=== PATIENT | female | born 1990 | race African-American/Black ===

== ENCOUNTER 2018-03-27 18:26 | Emergency (ER) | payer OTHER ==
[2018-03-27 19:18] VITALS: BP 120/75; PULSE 105; TEMP 98.7; BMI 31.8
--- NOTE | 2018-03-27 19:48 | PDOC ---
History of Present Illness - General Chief Complaint: Cold Symptoms Stated Complaint: COLD SYMPTOMS Time Seen by Provider: 03/27/18 19:42 - History of Present Illness Initial Comments: 27-year-old female without comorbidities presents for evaluation of cough 5 days. No other associated symptoms. 03/27/18 19:46 Past History - Past Medical History Allergies/Adverse Reactions: Allergies Allergy/AdvReac Type Severity Reaction Status Date / Time No Known Allergies Allergy Verified 03/27/18 19:15 Home Medications: Ambulatory Orders NK [No Known Home Medication] 03/27/18 Asthma: No Cancer: No Cardiac Disorders: No Diabetes: No HTN: No Seizures: No Thyroid Disease: No - Reproductive History (#): 1 Para: 0 - Suicide/Smoking/Psychosocial Hx Smoking Status: No Smoking History: Never smoked Have you smoked in the past 12 months: No Number of Cigarettes Smoked Daily: 0 Hx Alcohol Use: No Drug/Substance Use Hx: No Hx Substance Use Treatment: No Review of Systems - Review of Systems Respiratory: Yes: Cough All Other Systems: Reviewed and Negative *Physical Exam - Vital Signs Last Vital Signs Temp Pulse Resp BP Pulse Ox 98.7 F 105 H 18 120/75 9 L 03/27/18 19:15 03/27/18 19:15 03/27/18 19:15 03/27/18 19:15 03/27/18 19:15 - Physical Exam Comments: HEAD: NC/AT EYES: Conjuntiva clear Ears: Canals and TM's normal NOSE: No d/c THROAT: Moist mucous membrances, oral pharanx clear, uvula midline NECK: Supple without adenopathy CARDIAC: S1 S2 LUNGS: CTA Full and Equal breath sounds ABDOMEN: Soft NT ND MS: Full ROM in all joints without edema NEUROLOGIC: No gross sensory or motor deficits, NVID SKIN: Normal color and temperature no lesions or rashes 03/27/18 19:47 Medical Decision Making - Medical Decision Making This is a benign examination and healthy 27-year-old female without comorbidities. I will for her to PCP for further evaluation and treatment options. I do not see the need for antibiotics at this time. 03/27/18 19:47 *DC/Admit/Observation/Transfer Diagnosis at time of Disposition: Viral syndrome - Discharge Dispostion Disposition: HOME Condition at time of disposition: Stable Decision to Admit order: No - Referrals Referrals: Aminata Trejo MD [Primary Care Provider] - - Patient Instructions Printed Discharge Instructions: DI for Viral Upper Respiratory Infection -- Adult Additional Instructions: Return to the emergency room should symptoms worsen or go unresolved. Please follow-up with your primary care physician one to 2 days for further evaluation and treatment options. - Post Discharge Activity
== END 2018-03-27 19:51 | disposition home or self-care (01) ==
LOC: JERFT 18:26
DX: B34.9 Viral infection, unspecified (principal)
CPT/HCPCS: 99281-25

== ENCOUNTER 2018-08-23 09:13 | Emergency (ER) | payer OTHER ==
[2018-08-23 09:18] VITALS: BP 114/67; PULSE 90; TEMP 98.7; BMI 30.9
--- NOTE | 2018-08-23 10:12 | PDOC ---
History of Present Illness - General Chief Complaint: Cold Symptoms Stated Complaint: COLD SYMPTOMS Time Seen by Provider: 08/23/18 09:28 History Source: Patient Exam Limitations: Clinical Condition - History of Present Illness Initial Comments: 08/23/18 10:07 Patient with no significant past medical history of present with complaint of three-day history of persistent cough, nasal congestion, chest tightness, sinus pain and midsternal chest pain. Patient reported she had multiple episodes of chest pain in the past and all workup comes back negative. Patient denies dizziness, shortness of breath, headache, nausea, vomiting, swelling, fever or chills. Patient denies any other symptoms Timing/Duration: other (3 days) Past History - Past Medical History Allergies/Adverse Reactions: Allergies Allergy/AdvReac Type Severity Reaction Status Date / Time No Known Allergies Allergy Verified 08/23/18 09:18 Home Medications: Ambulatory Orders Benzonatate [Tessalon Pearls -] 100 mg PO TID PRN #21 capsule 08/23/18 Ipratropium [facility] 2 spray NS BID PRN #1 spray 08/23/18 Loratadine 10 mg PO DAILY #10 capsule 08/23/18 Methylprednisolone [Medrol Dose Geoff] 4 mg PO ASDIR #21 tablet 08/23/18 Asthma: No Cancer: No Cardiac Disorders: No COPD: No Diabetes: No HTN: No Seizures: No Thyroid Disease: No - Reproductive History (#): 1 Para: 0 - Suicide/Smoking/Psychosocial Hx Smoking Status: No Smoking History: Never smoked Have you smoked in the past 12 months: No Number of Cigarettes Smoked Daily: 0 Information on smoking cessation initiated: No Hx Alcohol Use: No Drug/Substance Use Hx: No Hx Substance Use Treatment: No Review of Systems - Review of Systems Able to Perform ROS?: Yes Is the patient limited Peruvian proficient: No Constitutional: No: Chills, Fever, Malaise, Weakness HEENTM: Yes: Symptoms Reported, See HPI, Nose Congestion. No: Eye Pain, Blurred Vision, Tearing, Recent change in vision, Double Vision, Cataracts, Ear Pain, Ocular Prothesis, Ear Discharge, Nose Pain, Tinnitus, Nose Bleeding, Hearing Loss, Throat Pain, Throat Swelling, Mouth Pain, Dental Problems, Difficulty Swallowing, Mouth Swelling, Other Respiratory: Yes: Symptoms reported, See HPI, Cough, Productive cough (yellow sputum). No: Orthopnea, Shortness of Breath, SOB with Exertion, SOB at Rest, Stridor, Wheezing, Hemoptysis, Other Cardiac (ROS): Yes: Symptoms Reported, See HPI, Chest Pain (mid-sternum), Chest Tightness. No: Edema, Irregular Heart Rate, Lightheadedness, Palpitations, Syncope, Other ABD/GI: No: Constipated, Diarrhea, Nausea, Vomiting, Abdominal cramping Neurological: No: Headache, Numbness, Paresthesia, Tingling, Weakness, Ataxia, Dizziness All Other Systems: Reviewed and Negative *Physical Exam - Vital Signs Last Vital Signs Temp Pulse Resp BP Pulse Ox 98.7 F 90 18 114/67 99 08/23/18 09:16 08/23/18 09:16 08/23/18 09:16 08/23/18 09:16 08/23/18 09:16 - Physical Exam Comments: 08/23/18 10:09 GENERAL: Well developed, well nourished. Awake and alert. No acute distress. HEENT: Normocephalic, atraumatic. PERRLA, EOMI. No conjunctival pallor. Sclera are non-icteric. Moist mucous membranes. Oropharynx is clear. NECK: Supple. Full ROM. CARDIOVASCULAR: Mild reproducible midsternal chest tenderness.Regular rate and rhythm. No murmurs, rubs, or gallops. Distal pulses are 2+ and symmetric. PULMONARY: No evidence of respiratory distress. Lungs clear to auscultation bilaterally. No wheezing, rales or rhonchi. ABDOMINAL: Soft. Non-tender. Non-distended. No rebound or guarding. No organomegaly. Normoactive bowel sounds. MUSCULOSKELETAL Normal range of motion at all joints. EXTREMITIES: No cyanosis. No clubbing. No edema. No calf tenderness. SKIN: Warm and dry. Normal capillary refill. No rashes. No jaundice. NEUROLOGICAL: Alert, awake, appropriate. Gait is normal without ataxia. PSYCHIATRIC: Cooperative. Good eye contact. Appropriate mood General Appearance: Yes: Nourished, Appropriately Dressed. No: Apparent Distress Moderate Sedation - Procedure Monitoring Vital Signs: Procedure Monitoring Vital Signs Temperature 98.7 F 08/23/18 09:16 Pulse Rate 90 08/23/18 09:16 Respiratory Rate 18 08/23/18 09:16 Blood Pressure 114/67 08/23/18 09:16 O2 Sat by Pulse Oximetry (%) 99 08/23/18 09:16 ED Treatment Course - RADIOLOGY Radiology Studies Ordered: Category Date Time Status CHEST PA & LAT [RAD] Stat Radiology 08/23/18 10:05 Ordered Medical Decision Making - Medical Decision Making 08/23/18 10:10 Patient with no significant past medical history of present with complaint of three-day history of persistent cough, nasal congestion, chest tightness, sinus pain and midsternal chest pain. Patient reported she had multiple episodes of chest pain in the past and all workup comes back negative. Exam unremarkable except mild reproducible midsternal chest tenderness. Normal cardiac exam. Lungs clear to auscultation bilateral. Patient in no acute distress. Symptoms likely URI with costochondritis from cough. EKG and chest x-ray ordered to rule out any cardiopulmonary pathology. 08/23/18 10:52 EKG shows normal sinus rhythm. Chest x-ray shows no acute chest pathology. Patient is stable for discharge for treatment for viral URI with costochondritis with PCP follow-up. *DC/Admit/Observation/Transfer Diagnosis at time of Disposition: Bronchospasm, Costochondritis, acute URI (upper respiratory infection) Qualifiers: URI type: unspecified URI Qualified Code(s): J06.9 - Acute upper respiratory infection, unspecified - Discharge Dispostion Disposition: HOME Condition at time of disposition: Stable Decision to Admit order: No - Prescriptions Prescriptions: Benzonatate [Tessalon Pearls -] 100 mg PO TID PRN #21 capsule PRN Reason: Cough Ipratropium [facility] 2 spray NS BID PRN #1 spray PRN Reason: nasal congestion Loratadine 10 mg PO DAILY #10 capsule Methylprednisolone [Medrol Dose Geoff] 4 mg PO ASDIR #21 tablet - Referrals - Patient Instructions Printed Discharge Instructions: DI for Viral Upper Respiratory Infection -- Adult Additional Instructions: No EKG was normal. Your checks x-ray was also normal. Take medication as prescribed. Follow-up with primary care. - Post Discharge Activity
--- NOTE | 2018-08-24 15:43 | EKG ---
Test Reason : Blood Pressure : / mmHG Vent. Rate : 090 BPM Atrial Rate : 090 BPM P-R Int : 148 ms QRS Dur : 078 ms QT Int : 350 ms P-R-T Axes : 061 -15 034 degrees QTc Int : 428 ms NORMAL SINUS RHYTHM POSSIBLE LEFT ATRIAL ENLARGEMENT LEFT VENTRICULAR HYPERTROPHY ABNORMAL ECG NO PREVIOUS ECGS AVAILABLE Confirmed by PABLO MUELLER MD ([id number]) on 08/24/2018 3:43:11 PM Referred By: JUANITO Confirmed By:PABLO MUELLER MD
== END 2018-08-23 10:57 | disposition home or self-care (01) ==
LOC: JERFT 09:13
DX: J06.9 Acute upper respiratory infection, unspecified (principal); M94.0 Chondrocostal junction syndrome [Tietze]; J98.01 Acute bronchospasm
CPT/HCPCS: 71046-TC-FY; 93005; 93010; 99281-25

== ENCOUNTER 2019-08-16 18:20 | Emergency (ER) | payer OTHER ==
[2019-08-16 18:27] VITALS: BP 125/76; PULSE 68; TEMP 98.3; BMI 27.4
[2019-08-16] MEDS ORDERED: METOCLOPRAMIDE HCL INJECTION 10 MG/2 ML VIAL IVPUSH ONE (19:24)
[2019-08-16] MEDS ORDERED: SODIUM CHLORIDE 1,000 ML IV STA (19:24)
[2019-08-16] MEDS ORDERED: ACETAMINOPHEN 1000 MG/100 ML VIAL (NON FORMULARY) IVPB ONE (19:24)
[2019-08-16] MEDS ORDERED: METOCLOPRAMIDE HCL INJECTION 10 MG/2 ML VIAL ONE (19:28)
[2019-08-16] MEDS ORDERED: ACETAMINOPHEN INJECTION 100 ML IVPB ONE (19:41)
--- NOTE | 2019-08-16 20:00 | PDOC ---
History of Present Illness - General Chief Complaint: Nausea/Vomiting Stated Complaint: NAUSEA/VOMITING Time Seen by Provider: 08/16/19 18:43 History Source: Patient Exam Limitations: No Limitations - History of Present Illness Initial Comments: 08/16/19 19:56 HISTORY OF PRESENT ILLNESS: 28-year-old woman with past medical history migraines who presents emergency department for evaluation of frontal headache, photophobia, nausea and nonbilious nonbloody vomiting which started this morning. Patient reports this is different from her usual migraine pattern as this is much more intense but admits that she does not remember her migraines well as it is been many years since her last episode. Patient denies any neck pain. She states the pain is a 9/10 and is located bitemporal rating across the frontal region. She denies any blurry vision. Patient wears glasses and reports her prescription has been stable for greater than 1 year denies any visual changes with corrective lenses. Patient reports last menstrual period was 07/23 and is expecting her period any day now. She denies any possibility of . No recent travel or sick contacts. PAST MEDICAL HISTORY: Migraines SURGICAL HISTORY: Denies ALLERGIES: No known drug allergies REVIEW OF SYSTEMS General/Constitutional: Denies fever or chills. Denies weakness, weight change. HEENT: Denies change in vision. Denies ear pain or discharge. Denies sore throat. Cardiovascular: Denies chest pain or shortness of breath. Respiratory: Denies cough, wheezing, or hemoptysis. Gastrointestinal: Denies nausea, vomiting, diarrhea or constipation. Denies rectal bleeding. Genitourinary: Denies dysuria, frequency, or change in urination. Musculoskeletal: Denies joint or muscle swelling or pain. Denies neck or back pain. Skin and breasts: Denies rash or easy bruising. Neurologic: See HPI Psychiatric: Denies depression or anxiety. Endocrine: Denies increased thirst. Denies abnormal weight change. Hematologic/Lymphatic: Denies anemia, easy bleeding, or history of blood clots. Allergic/Immunologic: Denies hives or skin allergy. Denies latex allergy. PHYSICAL EXAM General Appearance: Well-appearing, appropriately dressed. No apparent distress , no intoxication. HEENT: EOMI, PERRLA, normal ENT inspection, normal voice, TMs normal, pharynx normal. No conjunctival pallor. No photophobia, scleral icterus. Neck: Supple. Trachea midline. No tenderness, rigidity, carotid bruit, stridor , lymphadenopathy, or thyromegaly. Full active range of motion present. Respiratory/Chest: Lungs CTAB. No shortness of breath, chest tenderness, respiratory distress, accessory muscle use. No crackles, rales, rhonchi, stridor , wheezing, dullness Cardiovascular: RRR. S1, S2. No JVD, murmur, bradycardia, tachycardia. Vascular Pulses: Dorsalis-Pedis (R): 2+, Dorsalis-Pedis (L): 2+ Gastrointestinal/Abdominal: Normal bowel sounds. Abdomen soft, non-distended. No tenderness or rebound tenderness. No organomegaly, pulsatile mass, guarding, hernia, hepatomegaly, splenomegaly. Integumentary: Appropriate color, dry, warm. No cyanosis, erythema, jaundice or rash Neurologic: plastics process hand II-XII intact. Fully oriented, alert. Appropriate mood/affect. Motor strength 5/5. No appreciable EOM palsy, facial droop or sensory deficit. Gait is steady. Able to perform rapid alternating movements without difficulty. Past History - Past Medical History Allergies/Adverse Reactions: Allergies Allergy/AdvReac Type Severity Reaction Status Date / Time No Known Allergies Allergy Verified 08/23/18 09:18 Home Medications: Ambulatory Orders Benzonatate [Tessalon Pearls -] 100 mg PO TID PRN #21 capsule 08/23/18 Ipratropium [facility] 2 spray NS BID PRN #1 spray 08/23/18 Loratadine 10 mg PO DAILY #10 capsule 08/23/18 Methylprednisolone [Medrol Dose Geoff] 4 mg PO ASDIR #21 tablet 08/23/18 Asthma: No Cancer: No Cardiac Disorders: No COPD: No Diabetes: No HTN: No Seizures: No Thyroid Disease: No - Reproductive History (#): 1 Para: 0 - Immunization History Immunization Up to Date: No - Psycho Social/Smoking Cessation Hx Smoking Status: No Smoking History: Never smoked Have you smoked in the past 12 months: No Number of Cigarettes Smoked Daily: 0 Information on smoking cessation initiated: No Hx Alcohol Use: No Drug/Substance Use Hx: No Hx Substance Use Treatment: No *Physical Exam - Vital Signs Last Vital Signs Temp Pulse Resp BP Pulse Ox 98.3 F 68 16 125/76 98 08/16/19 18:25 02/06/20 18:25 08/16/19 18:25 08/16/19 18:25 08/16/19 18:25 ED Treatment Course - Medications Given in the ED: ED Medications Discontinued Medications Generic Name Dose Route Start Last Admin Trade Name Georges PRN Reason Stop Dose Admin Acetaminophen 1,000 mg 08/16/19 19:24 08/16/19 19:41 Ofirmev Injection - IVPB 08/16/19 19:25 1,000 mg ONCE ONE Administration Diphenhydramine HCl 25 mg 08/16/19 19:24 08/16/19 19:41 Benadryl Injection - IVPUSH 08/16/19 19:25 25 mg ONCE ONE Administration Metoclopramide HCl 10 mg 08/16/19 19:24 08/16/19 19:42 Reglan Injection - IVPUSH 08/16/19 19:25 10 mg ONCE ONE Administration Medical Decision Making - Medical Decision Making 08/16/19 19:58 A/P: 28-year-old woman with frontal headache for the past day Differential diagnosis includes but is not limited to-neoplasm, migraine, menstrual headache, meningitis. Less likely meningitis as patient has a normal neurologic exam and full range of motion of her neck. Additionally Kernig's and presents the signs are negative. Urine testing Normal saline 1 L IV bolus Reglan 10 mg IV push Benadryl 25 mg IV push Tylenol 1 g IV We will add Toradol if urine is negative. Reassess 08/16/19 20:40 Upon reevaluation patient currently rates her headache 0/10 and is requesting discharge. As patient will not need Toradol and will DC urine testing and have patient follow-up with her neurologist Dr. Angeles. I discussed the physical exam findings, ancillary test results and final diagnoses with the patient. I answered all of the patient's questions. The patient was satisfied with the care received and felt comfortable with the discharge plan and treatment plan. The patient will call their primary care physician within 24 hours to arrange follow-up and will return to the Emergency Department with any new, persistent or worsening symptoms. Discharge - Discharge Information Problems reviewed: Yes Clinical Impression/Diagnosis: Migraine Qualifiers: Migraine type: unspecified Status migrainosus presence: without status migrainosus Intractability: not intractable Qualified Code(s): G43.909 - Migraine, unspecified, not intractable, without status migrainosus Condition: Stable Disposition: HOME - Admission No - Follow up/Referral Referrals: Ayde Rose MD [Staff Physician] - - Patient Discharge Instructions Additional Instructions: Take Tylenol or Motrin as needed for headaches. Keep a diary of all food to eat and activities performed prior to headaches starting. Make an appointment with her primary doctor for reevaluation within the next week. Return to emergency department for worsening headache, blurry vision, dizziness , nausea, vomiting or any other concerns. Thank you very much for for choosing us to provide emergent health care needs. - Post Discharge Activity
== END 2019-08-16 20:53 | disposition home or self-care (01) ==
LOC: JER 18:20
PROC: 3E033NZ Introduction of Analgesics, Hypnotics, Sedatives into Peripheral Vein, Percutaneous Approach (ICD-10-PCS; principal; 2019-08-16)
PROC: 3E033GC Introduction of Other Therapeutic Substance into Peripheral Vein, Percutaneous Approach (ICD-10-PCS; 2019-08-16)
PROC: 3E033GC Introduction of Other Therapeutic Substance into Peripheral Vein, Percutaneous Approach (ICD-10-PCS; 2019-08-16)
DX: G43.909 Migraine, unspecified, not intractable, without status migrainosus (principal)
CPT/HCPCS: 99282-25; J0131; J7030

== ENCOUNTER 2019-08-29 05:35 | Emergency (ER) | payer OTHER ==
[2019-08-29 06:12] VITALS: TEMP 97.9; BMI 31.2
[2019-08-29] MEDS ORDERED: SODIUM CHLORIDE 1,000 ML IV STA (07:45)
--- NOTE | 2019-08-29 07:52 | PDOC ---
History of Present Illness - General History Source: Patient Exam Limitations: No Limitations - History of Present Illness Initial Comments: 08/29/19 07:47 Patient is a 28-year-old female with no past medical history who presents to the ED with lower abdominal pain that she has had for the last 1 week. She states it is a cramping-like pain. She denies any fevers or chills. She denies any dysuria, frequency, urgency or hematuria. The pain does not radiate. She denies any vaginal discharge. She denies any flank pain. She states about 1 week ago she came to the ED for URI-like symptoms which have resolved and then this developed. She has not taken anything for her symptoms. <Jazlyn Capone - Last Filed: 08/29/19 09:30> <Suraj Mcwilliams - Last Filed: 08/29/19 15:26> - General Chief Complaint: Pain Stated Complaint: ABDOMINAL PAIN Time Seen by Provider: 08/29/19 07:22 Past History - Past Medical History Asthma: No Cancer: No Cardiac Disorders: No COPD: No Diabetes: No HTN: No Seizures: No Thyroid Disease: No - Reproductive History (#): 1 Para: 0 - Immunization History Immunization Up to Date: No - Psycho Social/Smoking Cessation Hx Smoking Status: No Smoking History: Never smoked Have you smoked in the past 12 months: No Number of Cigarettes Smoked Daily: 0 Hx Alcohol Use: No Drug/Substance Use Hx: No Hx Substance Use Treatment: No <Jazlyn Capone - Last Filed: 08/29/19 09:30> <Suraj Mcwilliams - Last Filed: 08/29/19 15:26> - Past Medical History Allergies/Adverse Reactions: Allergies Allergy/AdvReac Type Severity Reaction Status Date / Time No Known Allergies Allergy Verified 08/23/18 09:18 Home Medications: Ambulatory Orders Benzonatate [Tessalon Pearls -] 100 mg PO TID PRN #21 capsule 08/23/18 Ipratropium [place] 2 spray NS BID PRN #1 spray 08/23/18 Loratadine 10 mg PO DAILY #10 capsule 08/23/18 Methylprednisolone [Medrol Dose Geoff] 4 mg PO ASDIR #21 tablet 08/23/18 Review of Systems - Review of Systems Comments:: 08/29/19 07:48 - Review of Systems Able to Perform ROS?: Yes Constitutional: No: Fever, Chills, Loss of Appetite, Night Sweats, Weakness HEENTM: No: Eye Pain, Vision changes, Ear Pain, Throat Pain, Throat Swelling, Mouth Pain, Difficulty Swallowing Respiratory: No: Cough, Shortness of Breath, Wheezing, Sputum Production Cardiac (ROS): No: Chest Pain, Chest Tightness, Palpitations, Irregular Heart Beat, Edema ABD/GI: No: Nausea, Vomiting, Diarrhea; positive abdominal pain : No Dysuria, No Hematuria, No Frequency, No Urgency, No Vaginal Discharge/ Pain Musculoskeletal: No: Muscle Pain, Back Pain, Joint Pain, Muscle Weakness, Neck Pain Integumentary: No: Lesions, Rash Neurological: No: Headache, Numbness, Tingling, Weakness, Speech Difficulties <Jazlyn Capone - Last Filed: 08/29/19 09:30> *Physical Exam - Vital Signs Last Vital Signs Temp Pulse Resp BP Pulse Ox 97.9 F 80 16 116/68 100 08/29/19 05:56 08/29/19 05:56 08/29/19 05:56 08/29/19 05:56 08/29/19 05:56 - Physical Exam 08/29/19 07:49 - Physical Exam General Appearance: Nourished, Appropriately Dressed, No Distress HEENT: EOMI, Normal Voice, No Muffled/Hoarse voice, No Nasal Congestion, No Rhinorrhea, Hearing Grossly Normal Neck: Supple, No Lymphadenopathy (R), No Lymphadenopathy (L), No Rigidity, No Decreased range of motion Respiratory/Chest: Lungs Clear, Normal Breath Sounds. No Respiratory Distress, No Accessory Muscle Use Cardiovascular: Regular Rhythm, Regular Rate, S1, S2 Gastrointestinal/Abdominal: Normal Bowel Sounds, Soft. No Guarding, No Rebound, No Rigidity; Moderate suprapubic abdominal tenderness to palpation. No CVA tenderness b/l. WRIST HEMMER: speculum exam with scan clear and white d/c in the vault. Cervix is normal and nonfriable. No foul odor appreciated. No CMT on bimanual exam. No tenderness to the suprapubic region or b/l adnexa on bimanual exam. Musculoskeletal: Normal Inspection. No Decreased Range of Motion Extremity: Normal Capillary Refill, Normal Inspection Integumentary: Normal Color, Dry. 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 II-XII NML intact, Fully Oriented, Alert, Normal Mood/Affect, Normal Response <Jazlyn Capone - Last Filed: 08/29/19 09:30> - Vital Signs Last Vital Signs Temp Pulse Resp BP Pulse Ox 97.9 F 72 20 116/75 100 08/29/19 09:40 08/29/19 09:40 08/29/19 09:40 08/29/19 09:40 08/29/19 09:40 <Suraj Mcwilliams - Last Filed: 08/29/19 15:26> ED Treatment Course - LABORATORY CBC & Chemistry Diagram: 08/29/19 08:20 08/29/19 08:20 <Jazlyn Capone - Last Filed: 08/29/19 09:30> - LABORATORY CBC & Chemistry Diagram: 08/29/19 08:20 08/29/19 08:20 - ADDITIONAL ORDERS Additional order review: Laboratory Results 08/29/19 08/29/19 08/29/19 08:20 07:50 07:50 Sodium 141 Potassium 4.1 Chloride 108 H Carbon Dioxide 30 Anion Gap 3 L BUN 7.6 Creatinine 0.7 Est GFR (CKD-EPI)AfAm 138.59 Est GFR (CKD-EPI)NonAf 119.58 Random Glucose 89 Calcium 9.1 Total Bilirubin 0.3 AST 20 ALT 26 Alkaline Phosphatase 72 Total Protein 7.4 Albumin 3.8 Lipase 112 Urine Color Yellow Urine Appearance Clear Urine pH 5.5 D Ur Specific Ridge 1.028 Urine Protein Negative Urine Glucose (UA) Negative Urine Ketones Negative Urine Blood Negative Urine Nitrite Negative Urine Bilirubin Negative Urine Urobilinogen 0.2 Ur Leukocyte Esterase Negative Urine HCG, Qual Negative 08/29/19 08:20 RBC 4.46 MCV 88.5 MCHC 34.3 RDW 13.0 D MPV 8.3 Neutrophils % 51.8 Lymphocytes % 36.9 D Monocytes % 8.1 Eosinophils % 2.0 D Basophils % 1.2 - Medications Given in the ED: ED Medications Discontinued Medications Generic Name Dose Route Start Last Admin Trade Name Freq PRN Reason Stop Dose Admin Sodium Chloride 1,000 mls @ 1,000 mls/hr 08/29/19 07:45 08/29/19 08:20 Normal Saline - IV 08/29/19 08:44 1,000 mls/hr ASDIR STA Administration Ketorolac Tromethamine 15 mg 08/29/19 07:53 08/29/19 08:20 Toradol Injection - IVPUSH 08/29/19 07:54 15 mg ONCE ONE Administration <Suraj Mcwilliams - Last Filed: 08/29/19 15:26> Medical Decision Making - Medical Decision Making 08/29/19 07:52 Assessment: Patient is a 28-year-old female with suprapubic abdominal pain for the last 1 week. Plan: -Labs including UA and urine culture -Saline lock and fluids -Analgesia -Will reassess 08/29/19 09:31 The patient has been made aware that her labs are all within normal limits. Her exam has improved and she no longer has suprapubic abdominal pain. She will follow-up with her primary doctor within 1 to 2 days for repeat evaluation. We have made the patient aware that we sent a GC chlamydia swab and we will call her with the results. She understands and agrees with this treatment plan the patient stable for discharge. <Jazlyn Capone - Last Filed: 08/29/19 09:30> - Medical Decision Making 08/29/19 15:26 I reviewed the case of the mid-level practitioner and was available for consultation while in the emergency department <Suraj Mcwilliams - Last Filed: 08/29/19 15:26> Discharge - Discharge Information Problems reviewed: Yes <Jazlyn Capone - Last Filed: 08/29/19 09:30> <Suraj Mcwilliams - Last Filed: 08/29/19 15:26> - Discharge Information Clinical Impression/Diagnosis: Suprapubic pain, acute Condition: Stable Disposition: HOME - Follow up/Referral Referrals: ON STAFF,NOT [Primary Care Provider] - 2 Days CallBack Reminder: call w/ gc/chlamydia swab regardless of results - Patient Discharge Instructions Patient Printed Discharge Instructions: DI for Abdominal Pain-Adult Additional Instructions: Get plenty of rest and drink plenty of fluids. Take Tylenol or ibuprofen as needed for pain. Follow-up with your primary doctor or your SENIOR RELATIONSHIP MANAGER doctor within 2 days for repeat evaluation. - Post Discharge Activity Work/Back to School Note: Back to Work
[2019-08-29] MEDS ORDERED: KETOROLAC TROMETHAMINE 15 MG/ML VIAL IVPUSH ONE (07:53)
[2019-08-29] MEDS ORDERED: KETOROLAC TROMETHAMINE 15 MG/ML VIAL ONE (08:11)
[2019-08-29 08:35] LABS: BASO % 1.2 % (0-2.0); HEMATOCRIT 39.5 % (32.4-45.2); HEMOGLOBIN 13.5 GM/dL (10.7-15.3); LYMPH % 36.9 % (8-40); MCH 30.3 pg (25.7-33.7); MCHC 34.3 g/dl (32.0-36.0); MEAN CELL VOLUME 88.5 fl (80-96); MEAN PLT VOLUME 8.3 fl (7.5-11.1); MONO % 8.1 % (3.8-10.2); NEUT % 51.8 % (42.8-82.8); PLATELET COUNT 272 K/MM3 (134-434); RBC 4.46 M/mm3 (3.60-5.2); WHITE BLOOD COUNT 6.2 K/mm3 (4.0-10.0)
[2019-08-29 08:58] LABS: PH,URINE 5.5 (5.0-8.0); URINE APPEARANCE CLEAR; URINE BILIRUBIN NEGATIVE (NEGATIVE); URINE COLOR YELLOW; URINE GLUCOSE (UA) NEGATIVE (NEGATIVE); URINE KETONE NEGATIVE (NEGATIVE); URINE LEUK ESTERASE NEGATIVE (NEGATIVE); URINE NITRITE NEGATIVE (NEGATIVE); URINE PROTEIN NEGATIVE (NEGATIVE); URINE UROBILINOGEN 0.2 mg/dL (0.2-1.0)
[2019-08-29 08:59] LABS: ALBUMIN 3.8 g/dl (3.4-5.0); BILIRUBIN,TOTAL 0.3 mg/dL (0.2-1); BLOOD UREA NITROGEN 7.6 mg/dL (7-18); CALCIUM 9.1 mg/dL (8.5-10.1); CREATININE 0.7 mg/dL (0.55-1.3); POTASSIUM 4.1 mmol/L (3.5-5.1); TOT PROT 7.4 g/dl (6.4-8.2)
[2019-08-29 09:46] VITALS: BP 116/75; PULSE 72
== END 2019-08-29 09:46 | disposition home or self-care (01) ==
LOC: JER 05:35
PROC: 3E0333Z Introduction of Anti-inflammatory into Peripheral Vein, Percutaneous Approach (ICD-10-PCS; principal; 2019-08-29)
PROC: 3E0337Z Introduction of Electrolytic and Water Balance Substance into Peripheral Vein, Percutaneous Approach (ICD-10-PCS; 2019-08-29)
DX: R10.30 Lower abdominal pain, unspecified (principal)
CPT/HCPCS: 36415; 80053; 81003; 83690; 84703; 85025; 87077; 87086; 87491; 87591; 96361; 96374; 99283-25; J7030

== ENCOUNTER 2022-08-05 14:34 | Emergency (ER) | payer OTHER ==
[2022-08-05 14:50] VITALS: BP 117/79; PULSE 82; RESP 18; TEMP 98; BMI 38.4
[2022-08-05] MEDS ORDERED: METOCLOPRAMIDE HCL INJECTION 10 MG/2 ML VIAL IVPB ONE (17:46)
[2022-08-05] MEDS ORDERED: ACETAMINOPHEN 1000 MG/100 ML BAG IVPB ONE (17:46)
[2022-08-05] MEDS ORDERED: LACTATED RINGERS SOLUTION 1000 ML INFUS.BAG IV ONE (17:46)
[2022-08-05] MEDS ORDERED: METOCLOPRAMIDE HCL INJECTION 10 MG/2 ML VIAL ONE (18:53)
[2022-08-05] MEDS ORDERED: ACETAMINOPHEN INJECTION 100 ML IVPB ONE (18:53)
[2022-08-05 19:42] LABS: BASO % 0.6 % (0-2.0); HEMATOCRIT 42.8 % (32.4-45.2); HEMOGLOBIN 14.3 GM/dL (10.7-15.3); LYMPH % 40.9 % (8-40); MCH 29.3 pg (25.7-33.7); MCHC 33.4 g/dl (32.0-36.0); MEAN CELL VOLUME 87.9 fl (80-96); MEAN PLT VOLUME 8.6 fl (7.5-11.1); MONO % 8.2 % (3.8-10.2); NEUT % 49.3 % (42.8-82.8); PLATELET COUNT 319 10^3/uL (134-434); RBC 4.88 M/mm3 (3.60-5.2); RDW 13.5 % (11.6-15.6); WHITE BLOOD COUNT 6.3 K/mm3 (4.0-10.0)
[2022-08-05 19:45] LABS: PH,URINE 7.5 (5.0-8.0); URINE APPEARANCE TURBID; URINE BILIRUBIN NEGATIVE (NEGATIVE); URINE COLOR YELLOW; URINE GLUCOSE (UA) NEGATIVE (NEGATIVE); URINE KETONE NEGATIVE (NEGATIVE); URINE LEUK ESTERASE NEGATIVE (NEGATIVE); URINE NITRITE NEGATIVE (NEGATIVE); URINE PROTEIN NEGATIVE (NEGATIVE); URINE UROBILINOGEN 0.2 mg/dL (0.2-1.0)
[2022-08-05 19:47] LABS: HCG,QUALITATIVE URINE Negative
[2022-08-05 20:04] LABS: BLOOD UREA NITROGEN 5.6 mg/dL (7-18); CALCIUM 9.3 mg/dL (8.5-10.1)
[2022-08-05 20:07] LABS: CREATININE 0.7 mg/dL (0.55-1.3)
[2022-08-05 20:09] LABS: TOT PROT 7.8 g/dl (6.4-8.2)
[2022-08-05 20:10] LABS: BILIRUBIN,TOTAL 0.4 mg/dL (0.2-1)
== END 2022-08-05 21:54 | disposition home or self-care (01) ==
LOC: JERFT 14:34
PROC: 3E033GC Introduction of Other Therapeutic Substance into Peripheral Vein, Percutaneous Approach (ICD-10-PCS; principal; 2022-08-05)
DX: G43.909 Migraine, unspecified, not intractable, without status migrainosus (principal); R07.9 Chest pain, unspecified
CPT/HCPCS: 0241U-QW; 36415; 70450-TC; 71046-TC-FY; 80053; 81003; 84484; 84703; 85025; 87086; 87186; 93005; 93010; 99285-25

== ENCOUNTER 2022-10-04 07:25 | Emergency (ER) | payer OTHER ==
[2022-10-04 07:35] VITALS: BP 129/87; PULSE 88; RESP 17; TEMP 98.6; BMI 39.1
[2022-10-04] MEDS ORDERED: ACETAMINOPHEN 500 MG TABLET (FP) PO ONE (08:06)
[2022-10-04] MEDS ORDERED: MAG HYDROX/AL HYDROX/SIMETH 30 ML UNIT-DOSE CUP PO ONE (08:07)
[2022-10-04] MEDS ORDERED: ACETAMINOPHEN 325 MG TABLET (FP) ONE (08:09)
[2022-10-04] MEDS ORDERED: MAG HYDROX/AL HYDROX/SIMETH 30 ML UNIT-DOSE CUP ONE (08:09)
[2022-10-04 08:54] LABS: BASO % 0.6 % (0-2.0); EOS % 1.4 % (0-4.5); HEMATOCRIT 36.8 % (32.4-45.2); HEMOGLOBIN 12.9 GM/dL (10.7-15.3); LYMPH % 36.5 % (8-40); MCH 29.8 pg (25.7-33.7); MEAN PLT VOLUME 7.8 fl (7.5-11.1); MONO % 8.3 % (3.8-10.2); NEUT % 53.2 % (42.8-82.8); PLATELET COUNT 356 10^3/uL (134-434); RBC 4.33 M/mm3 (3.60-5.2); RDW 13.5 % (11.6-15.6); WHITE BLOOD COUNT 7.5 K/mm3 (4.0-10.0)
[2022-10-04 09:22] LABS: ALBUMIN 3.5 g/dl (3.4-5.0); ALK PHOS 61 U/L (45-117); ANION GAP 9 MMOL/L (8-16); BILIRUBIN,TOTAL 0.3 mg/dL (0.2-1); BLOOD UREA NITROGEN 10.5 mg/dL (7-18); CALCIUM 8.5 mg/dL (8.5-10.1); CHLORIDE 109 mmol/L (98-107); CO2 21 mmol/L (21-32); CREATININE 0.7 mg/dL (0.55-1.3); GLUCOSE,RANDOM 87 mg/dL (74-106); LIPASE 115 U/L (73-393); SGOT/AST 19 U/L (15-37); SGPT/ALT 21 U/L (13-61); SODIUM 138 mmol/L (136-145); TOT PROT 7.4 g/dl (6.4-8.2)
== END 2022-10-04 10:39 | disposition home or self-care (01) ==
LOC: JER 07:25
DX: R07.9 Chest pain, unspecified (principal); Z82.49 Family history of ischemic heart disease and other diseases of the circulatory system
CPT/HCPCS: 36415; 71045-TC-FY; 80053; 83690; 84484; 84703; 85025; 93005; 93010; 99285-25